=== PATIENT | female | born 1975 | race Caucasian/White ===

== ENCOUNTER 2017-01-05 22:12 | Emergency (ER) | payer MEDICAID ==
[~2017-01-05] VITALS: Ht 160 cm; Wt 63.0 kg
[2017-01-05 23:11] VITALS: BP 124/81
== END 2017-01-06 07:47 | disposition left against medical advice (07) ==
LOC: ER 22:12
DX: Z53.21 Procedure and treatment not carried out due to patient leaving prior to being seen by health care provider (principal)